=== PATIENT | male | born 1970 | race Caucasian/White ===

== ENCOUNTER 2021-07-17 13:12 | Emergency (ER) | payer BC ==
[2021-07-17] MEDS ORDERED: predniSONE 20 MG Tab PO ONE (14:09)
== END 2021-07-17 14:30 | disposition home or self-care (01) ==
LOC: JD.ED 13:12
DX: M10.9 Gout, unspecified (principal); Z88.0 Allergy status to penicillin; Z72.0 Tobacco use
CPT/HCPCS: 99283; J7512